=== PATIENT | male | born 1930 | race Caucasian/White ===

== ENCOUNTER → 2016-12-06 | Day surgery (SDC) | payer OTHER ==
[2016-11-29 10:29] VITALS: Ht 177.8 cm; Wt 91.8 kg
[~2016-12-06] VITALS: Ht 177.8 cm; Wt 91.8 kg
[~2016-12-06] MED LIST: ASCO500T3 PO; ASPCH81X PO; CITA40TA12 PO; CYAN100020 PO; ENDOSCOPIC MARKER 5 ML SYR ONE; FOLI1TAB7 PO; INSHNI SC; LIDOCAINE HCL 2% 2 ML VIAL (20MG/ML) ONE; LORA-741 PO; MULT-845 PO; NVLGI/PEN SC; ONDA4TAB65 PO; ONDANSETRON INJ 2 MG/ML 2 ML VIAL ONE; PROPOFOL IV EMULSION 10 MG/ML 20 ML VIAL IV ONE; QUET1TAB32 PO; SIMV20TA2 PO; SODIUM CHLORIDE 0.9% 500ML 500 ML IV ONE
--- NOTE | 2016-12-06 11:30 | Endo History and Physical ---
History & Physical Date of Service: Dec 06, 2016. Chief Complaint: abdominal discomfort and weight loss Referring Physician: History of Present Illness 86 year old male patient of Dr. Allen with a hx of DM-2, HTN, AAA, PVD, is here for abdominal discomfort and nausea of 6-7 weeks duration. This began abruptly, but was not associated any other symptoms of illness and no sick contact. Discomfort is diffuse, upper abdomen. He has persistent nausea but no vomiting. Unsure if there are any triggers; not worse any certain time of day. Eating improves his nausea. He has had a 10 lbs weight loss in the past 2 months. 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 He is sleeping more than usually. Appetite is good. CT and GES have been normal. He smokes several cigars a day for >50 yrs ago. Also has c/o diarrhea for 3 wks. Past Medical History Diabetes, High Cholesterol, Hypertension, Depression Past Surgical History Hx Cardiac Surgery: Yes (PACEMAKER, LEFT CAROTID ENDARTERECTOMY) Hx Internal Defibrillator: No Hx Pacemaker: No Hx Abdominal Surgery: Yes (JACQUI) Hx of Implantable Prosthesis: No Hx Post-Op Nausea and Vomiting: No Hx Cancer Surgery: No Hx Thoracic Surgery: No Hx Orthopedic: No Hx Urinary Tract Surgery: No Family History None Social History Smoking Status: Current Some Day Smoker Hx Substance Use: No Hx Alcohol Use: No Allergies Coded Allergies: No Known Allergies (Unverified , 12/06/16) Current Medications Reported Home Medications Medications Dose Route/Sig Max Daily Dose Days Date Category Dose Instructions Seroquel (Quetiapine Fumarate) 50 Mg Tab 50 Mg PO HS 11/29/16 Reported Celexa (Citalopram Hydrobromide) 40 Mg Tab 40 Mg PO QAM 11/29/16 Reported Folvite (Folic Acid) 1 Mg Tab 1 Mg PO QAM 11/29/16 Reported Centrum Silver Adult 50+ (Multiple Vitamins W/ Minerals) 1 Tab Tab 1 Tab PO QAM 11/29/16 Reported Vitamin C (Ascorbic Acid) 500 Mg Tab 1 Tab PO QAM 11/29/16 Reported Aspirin Chewable (Aspirin) 81 Mg Chew 81 Mg PO QAM 11/29/16 Reported Vitamin B12 (Cyanocobalamin) 1,000 Mcg Tab 1 Tab PO QAM 11/29/16 Reported Novolog Flexpen (Insulin Aspart) 100 Units/Ml Inj 1 Dose SC TID 11/29/16 Reported PER SLIDING SCALE BASED ON BSG Humulin N (Insulin Human NPH) 100 Units/Ml Susp 36 Units SC QPM 11/29/16 Reported Humulin N (Insulin Human NPH) 100 Units/Ml Susp 32 Units SC QAM 11/29/16 Reported Zocor (Simvastatin) 20 Mg Tab 20 Mg PO QPM 11/29/16 Reported Zofran (Ondansetron Hcl) 4 Mg Tab 4 Mg PO PRN PRN 11/29/16 Reported Ativan (Lorazepam) 0.5 Mg Tab 0.5 Mg PO BID PRN 11/29/16 Reported Vital Signs Weight (Kilograms): 91.82 Height (Feet): 5 Height (Inches): 10 Physical Exam General Appearance: WD/WN, no apparent distress Respiratory/Chest: Respiratory effort: no dyspnea Auscultation: breath sounds normal, CTA except as noted, no wheezing Cardiovascular: Apical Impulse: not displaced Heart Auscultation: RRR, normal S1, normal S2 Assessment and Plan 86 yo presenting with c/o of abdominal discomfort and weight loss plan for colonoscopy with random biopsies
--- NOTE | 2016-12-06 13:26 | GI REPORT ---
Procedure Date: 12/06/2016 12:30 PM Procedure: Colonoscopy Indications: Chronic diarrhea Medicines: General Anesthesia Complications: No immediate complications. Estimated blood loss: None. Estimated Blood Loss: Estimated blood loss: none. Procedure: Pre-Anesthesia Assessment: - Pre-Anesthesia Assessment: - Prior to the procedure, a History and Physical was performed, and patient medications, allergies and sensitivities were reviewed. The patient's tolerance of previous anesthesia was reviewed. Please see cafegive for complete details. - The risks and benefits of the procedure and the sedation options and risks were discussed with the patient. All questions were answered and informed consent was obtained. - Patient identification and proposed procedure were verified prior to the procedure by the physician and the nurse. The procedure was verified in the pre-procedure area in the procedure room. After obtaining informed consent, the endoscope was passed carefully and meticuously under direct vision and only advanced when the lumen was clearly identified, C02 insuflation was utilized throughout the entirity of the procedure. Throughout the procedure, the patient's blood pressure, pulse, and oxygen saturations were monitored continuously. After I obtained informed consent, the scope was passed under direct vision. Throughout the procedure, the patient's blood pressure, pulse, and oxygen saturations were monitored continuously. The scope was introduced through the anus and advanced to the terminal ileum, with identification of the appendiceal orifice and IC valve. The colonoscopy was performed without difficulty. The quality of the bowel preparation was good. The patient tolerated the procedure poorly due to frequent coughing and desaturation. Findings: A 20 mm polyp was found in the mid ascending colon. The polyp was sessile. Polypectomy was not attempted due to size and stability of patient. Biopsies were taken with a cold forceps for histology. Area was tattooed with an injection of Eva ink. A 20 mm polyp was found in the transverse colon. The polyp was sessile. Polypectomy was not attempted due to size and patient stability. A 5 mm polyp was found in the transverse colon. The polyp was sessile. The polyp was removed with a cold snare. Resection and retrieval were complete. Two sessile polyps were found in the sigmoid colon. The polyps were 3 to 5 mm in size. These polyps were removed with a cold snare. Resection and retrieval were complete. Multiple small-mouthed diverticula were found in the sigmoid colon. Biopsies for histology were taken with a cold forceps from the entire colon for evaluation of microscopic colitis. Impression: - One 20 mm polyp in the mid ascending colon. Resection not attempted. Biopsied. Tattooed. - One 20 mm polyp in the transverse colon. Resection not attempted. - One 5 mm polyp in the transverse colon, removed with a cold snare. Resected and retrieved. - Two 3 to 5 mm polyps in the sigmoid colon, removed with a cold snare. Resected and retrieved. - Diverticulosis in the sigmoid colon. - Biopsies were taken with a cold forceps from the entire colon for evaluation of microscopic colitis. Recommendation: - Discharge patient to home (with escort). - Await pathology results. - Discuss surgical resection for large polyps - Await stool studies Eben Sánchez MD 12/06/2016 1:26:06 PM This report has been signed electronically. Note Initiated On: 12/06/2016 12:30 PM I attest to the content of the Intraoperative Record and orders documented therein, exceptions below
--- NOTE | 2016-12-06 13:28 | Discharge Instructions ---
Endoscopy Patient Instructions Date / Procedure(s) Performed Dec 06, 2016. Colonoscopy Allergy Information Coded Allergies: No Known Allergies (Unverified , 12/06/16) Discharge Date / Findings Dec 06, 2016. Two large polyps that could not be removed due to size-these were biopsied several other small polyps Diverticuli biopsies were taken for evaluation of diarrhea We will discuss next step after pathology has been reviewed. Provider Instructions Activity Restrictions - No exercising or heavy lifting for 24 hours. - Do not drink alcohol the day of the procedure. - Do not drive a car or operate machinery until the day after the procedure. - Do not make any important decisions or sign important papers in 24 hours after the procedure. Following Day: - Return to full activity which may include returning to work/school. Diet Start your diet with liquids and light foods (jello, soup, juice, toast). Then eat your usual diet if not nauseated. Treatment For Common After Affects For mild abdominal pain, bloating, or excessive gas: - Rest - Eat lightly - Lie on right side Follow-Up Information Follow-up with Tiffany as scheduled Anesthesia Information What You Should Know You have had a procedure that required some medicine to reduce anxiety and discomfort. This treatment is called moderate sedation. After receiving the treatment, you may be sleepy, but you will be able to breathe on your own. The effects of the treatment may last for several hours. Follow these instructions along with Activity/Diet recommendations noted above: * Do NOT do anything where dizziness or clumsiness would be dangerous. * Rest quietly at home today, then you can be up and about tomorrow. * Have a responsible person stay with you the rest of today. * You may have had an I.V. today. If so, you may take the dressing off later today. Recommendations Call your doctor if: * Trouble breathing * Continuous vomiting for more than 24 hours * Temperature above 101 degrees * Severe abdominal pain or bloating * Pain not relieved by pain medicine ordered * There is increased drainage or redness from any incision * A large amount of rectal bleeding greater than 2-3 tablespoons. (If you had a polyp/s removed or have hemorrhoids, a small amount of blood - from the rectum is to be expected.) * You have any unanswered questions or concerns. IN THE EVENT OF A SERIOUS EMERGENCY, GO TO THE NEAREST EMERGENCY ROOM Your discharge instructions were prepared by provider Eben Sánchez. Patient Instructions Signature Page Avril Ferrell Patient (or Guardian) Signature/Date: I have read and understand the instructions given to me by my caregivers. Caregiver/RN/Doctor Signature/Date: The above-named patient and/or guardian has received patient instructions on this date. + Original Patient Signature Page (only) stays with chart. Please make copy for patient.
--- NOTE | 2016-12-06 13:42 | Anesthesiology Progress Note ---
Anesthesia Post Op Note Date & Time Dec 06, 2016 at 13:41 Vital Signs Pain Intensity: 0 Vital Signs Past 12 Hours Date Time Temp Pulse Resp B/P Pulse Ox O2 Delivery O2 Flow Rate FiO2 12/06/16 13:39 66 18 217/93 96 Room Air 12/06/16 11:38 36.4 66 18 167/81 95 Room Air Notes Mental Status: alert / awake / arousable, participated in evaluation Pt Amnestic to Procedure: Yes Nausea / Vomiting: adequately controlled Pain: adequately controlled Airway Patency, RR, SpO2: stable & adequate BP & HR: stable & adequate Hydration State: stable & adequate Anesthetic Complications: no major complications apparent
[2016-12-06 14:00] VITALS: BP 185/92; PULSE 68; O2SAT 96
== END | disposition home or self-care (01) ==
LOC: C.GI 11:13
PROVIDERS: ATTEND Internal Medicine
DX: K52.9 Noninfective gastroenteritis and colitis, unspecified (principal); R63.4 Abnormal weight loss; D12.2 Benign neoplasm of ascending colon; D12.3 Benign neoplasm of transverse colon; D12.4 Benign neoplasm of descending colon; D12.5 Benign neoplasm of sigmoid colon; K57.30 Diverticulosis of large intestine without perforation or abscess without bleeding; I10 Essential (primary) hypertension; I71.4 Abdominal aortic aneurysm, without rupture; I73.9 Peripheral vascular disease, unspecified; E78.00 Pure hypercholesterolemia, unspecified; E11.9 Type 2 diabetes mellitus without complications; F32.9 Major depressive disorder, single episode, unspecified; Z95.0 Presence of cardiac pacemaker; Z98.41 Cataract extraction status, right eye; Z98.42 Cataract extraction status, left eye; Z90.49 Acquired absence of other specified parts of digestive tract; F17.200 Nicotine dependence, unspecified, uncomplicated; Z79.4 Long term (current) use of insulin; Z68.29 Body mass index [BMI] 29.0-29.9, adult

== ENCOUNTER → 2016-12-09 | Day surgery (SDC) | payer OTHER ==
[2016-12-01 11:39] VITALS: BMI 29.0
[~2016-12-09] VITALS: Ht 177.8 cm; Wt 91.8 kg
[~2016-12-09] MED LIST changes: -ENDOSCOPIC MARKER 5 ML SYR ONE; +FENTANYL CITRATE INJ 50 MCG/1 ML 2 ML VIAL ONE; +LACTATED RINGER'S 1000ML 1,000 ML IV SCH; -LIDOCAINE HCL 2% 2 ML VIAL (20MG/ML) ONE; -ONDANSETRON INJ 2 MG/ML 2 ML VIAL ONE; -PROPOFOL IV EMULSION 10 MG/ML 20 ML VIAL IV ONE
[2016-12-09 05:40] VITALS: BP 154/91; PULSE 88; TEMP 36.7; O2SAT 92; Ht 177.8 cm; Wt 91.8 kg
--- NOTE | 2016-12-09 07:59 | DIAGNOSTIC IMAGING REPORT ---
CHEST ONE VIEW PORTABLE CLINICAL HISTORY: MD ORDER dyspnea COMPARISON STUDY: 03/04/2014 FINDINGS: Permanent bipolar cardiac pacemaker. Lungs are clear. Diaphragms smooth. IMPRESSION: No acute process. Electronically signed by: Gold Santiago M.D. 12/09/2016 7:57 AM Dictated Date/Time: 12/09/2016 7:56 AM
--- NOTE | 2016-12-09 08:14 | Anesthesiology Progress Note ---
Anesthesia Progress Note Date of Service Dec 09, 2016. Progress Notes The patient is an 86 y/o male scheduled for upper EUS with Dr. Sánchez. The patient has an upper respiratory infection that began several days ago. He has been coughing frequently and feels worse than normal. The patient has significant comorbidities including requiring emergency tracheostomy during induction for a lap cholecystectomy due to unknown difficult airway. A CXR today shows the lungs to be clear. However SpO2 on room air is 92 and on exam the patient has rhonchi bilaterally and a coarse cough. Dr. Betancur examined the patient with me and agrees that the patient is acutely at a high risk for reactive airway. Dr. Sánchez who performed an EGD several days ago on the patient agreed that the patient was coughing constantly during that procedure and noted the patient to be difficult. After discussion with Dr. Betancur, Dr. Sánchez, the patient, and the patient's we decided to cancel the procedure today and reschedule when the patient's URI has resolved.
== END | disposition home or self-care (01) ==
LOC: C.ACU 05:14
PROVIDERS: ATTEND Internal Medicine
DX: R10.10 Upper abdominal pain, unspecified (principal); J06.9 Acute upper respiratory infection, unspecified; Z53.09 Procedure and treatment not carried out because of other contraindication; Z98.890 Other specified postprocedural states; E11.9 Type 2 diabetes mellitus without complications

== ENCOUNTER 2016-12-23 06:04 | Day surgery (SDC) | payer OTHER ==
[2016-12-21 09:17] VITALS: BMI 29.0
[~2016-12-23] VITALS: Ht 177.8 cm; Wt 91.8 kg
[~2016-12-23 06:04] MED LIST changes: -FENTANYL CITRATE INJ 50 MCG/1 ML 2 ML VIAL ONE
[2016-12-23 06:50] VITALS: BP 141/73; PULSE 60; TEMP 36.7; O2SAT 92; Ht 177.8 cm; Wt 91.8 kg
[2016-12-23] MEDS ORDERED: KETAMINE HCL INJ 50 MG/ML 10 ML VIAL ONE (07:10)
[2016-12-23] MEDS ORDERED: FENTANYL CITRATE INJ 50 MCG/1 ML 2 ML VIAL ONE (07:10)
--- NOTE | 2016-12-23 07:56 | Endo History and Physical ---
History & Physical Date of Service: Dec 22, 2016. Chief Complaint: Referring Physician: History of Present Illness 86 year old male patient of Dr. Allen with a hx of DM-2, HTN, AAA, PVD, who presented for consultation for abdominal discomfort and nausea of 6-7 weeks duration. This began abruptly, but was not associated any other symptoms of illness and no sick contact. Discomfort is diffuse, upper abdomen. He has persistent nausea but no vomiting. Unsure if there are any triggers; not worse any certain time of day. Eating improves his nausea. He has had a 10 lbs weight loss in the past 2 months. 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 He is sleeping more than usually. Appetite is good. CT and GES have been normal. He smokes several cigars a day for >50 yrs ago. Prior work up to Date: [place] GES 11/15/16: T 1/2 = [address] 11/03/2016 at [facility] with IV not oral contrast: no bowel abnormalities. 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 Labs: chem panel on 11/04/16 BS 296, ALT 38. Past Medical History Diabetes, High Cholesterol, Hypertension, Depression Past Surgical History Hx Cardiac Surgery: Yes (PACEMAKER, LEFT CAROTID ENDARTERECTOMY) Hx Internal Defibrillator: No Hx Pacemaker: No Hx Abdominal Surgery: Yes (JACQUI) Hx Post-Op Nausea and Vomiting: No Hx Cancer Surgery: No Hx Thoracic Surgery: No Hx Orthopedic: No Hx Urinary Tract Surgery: No Social History Smoking Status: Light Tobacco Smoker Hx Substance Use: No Hx Alcohol Use: No Allergies Coded Allergies: No Known Allergies (Unverified , 12/23/16) Current Medications Reported Home Medications Medications Dose Route/Sig Max Daily Dose Days Date Category Dose Instructions Seroquel (Quetiapine Fumarate) 50 Mg Tab 50 Mg PO HS 11/29/16 Reported Celexa (Citalopram Hydrobromide) 40 Mg Tab 40 Mg PO QAM 11/29/16 Reported Folvite (Folic Acid) 1 Mg Tab 1 Mg PO QAM 11/29/16 Reported Centrum Silver Adult 50+ (Multiple Vitamins W/ Minerals) 1 Tab Tab 1 Tab PO QAM 11/29/16 Reported Vitamin C (Ascorbic Acid) 500 Mg Tab 1 Tab PO QAM 11/29/16 Reported Aspirin Chewable (Aspirin) 81 Mg Chew 81 Mg PO QAM 11/29/16 Reported Vitamin B12 (Cyanocobalamin) 1,000 Mcg Tab 1 Tab PO QAM 11/29/16 Reported Novolog Flexpen (Insulin Aspart) 100 Units/Ml Inj 1 Dose SC TID 11/29/16 Reported PER SLIDING SCALE BASED ON BSG Humulin N (Insulin Human NPH) 100 Units/Ml Susp 36 Units SC QPM 11/29/16 Reported Humulin N (Insulin Human NPH) 100 Units/Ml Susp 32 Units SC QAM 11/29/16 Reported Zocor (Simvastatin) 20 Mg Tab 20 Mg PO QPM 11/29/16 Reported Zofran (Ondansetron Hcl) 4 Mg Tab 4 Mg PO PRN PRN 11/29/16 Reported Ativan (Lorazepam) 0.5 Mg Tab 0.5 Mg PO BID PRN 11/29/16 Reported Vital Signs Weight (Kilograms): 91.82 Height (Feet): 5 Height (Inches): 10 Physical Exam General Appearance: WD/WN, no apparent distress Respiratory/Chest: Respiratory effort: no dyspnea Auscultation: breath sounds normal, CTA except as noted, no wheezing, no rales/crackles Cardiovascular: Apical Impulse: not displaced Heart Auscultation: RRR, normal S1, normal S2, no murmurs Abdomen: Bowel Sounds: normal Inspection & Palpation: soft, non-distended, no tenderness, guarding & rebound Assessment and Plan Plan for EGD/EUS for evaluation of nausea and occult weight loss
--- NOTE | 2016-12-23 07:57 | Endo History and Physical ---
History & Physical Date of Service: Dec 23, 2016. Chief Complaint: Referring Physician: History of Present Illness 86 year old male patient of Dr. Allen with a hx of DM-2, HTN, AAA, PVD, who presented for consultation for abdominal discomfort and nausea of 6-7 weeks duration. This began abruptly, but was not associated any other symptoms of illness and no sick contact. Discomfort is diffuse, upper abdomen. He has persistent nausea but no vomiting. Unsure if there are any triggers; not worse any certain time of day. Eating improves his nausea. He has had a 10 lbs weight loss in the past 2 months. 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 He is sleeping more than usually. Appetite is good. CT and GES have been normal. He smokes several cigars a day for >50 yrs ago. Prior work up to Date: [place] G[place] 11/15/16: T 1/2 = [address] 11/03/2016 at [facility] with IV not oral contrast: no bowel abnormalities. 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 Labs: chem panel on 11/04/16 BS 296, ALT 38. Past Medical History Diabetes, High Cholesterol, Hypertension, Depression Past Surgical History Hx Cardiac Surgery: Yes (PACEMAKER, LEFT CAROTID ENDARTERECTOMY) Hx Internal Defibrillator: No Hx Pacemaker: No Hx Abdominal Surgery: Yes (JACQUI) Hx Post-Op Nausea and Vomiting: No Hx Cancer Surgery: No Hx Thoracic Surgery: No Hx Orthopedic: No Hx Urinary Tract Surgery: No Social History Smoking Status: Light Tobacco Smoker Hx Substance Use: No Hx Alcohol Use: No Allergies Coded Allergies: No Known Allergies (Unverified , 12/23/16) Current Medications Reported Home Medications Medications Dose Route/Sig Max Daily Dose Days Date Category Dose Instructions Seroquel (Quetiapine Fumarate) 50 Mg Tab 50 Mg PO HS 11/29/16 Reported Celexa (Citalopram Hydrobromide) 40 Mg Tab 40 Mg PO QAM 11/29/16 Reported Folvite (Folic Acid) 1 Mg Tab 1 Mg PO QAM 11/29/16 Reported Centrum Silver Adult 50+ (Multiple Vitamins W/ Minerals) 1 Tab Tab 1 Tab PO QAM 11/29/16 Reported Vitamin C (Ascorbic Acid) 500 Mg Tab 1 Tab PO QAM 11/29/16 Reported Aspirin Chewable (Aspirin) 81 Mg Chew 81 Mg PO QAM 11/29/16 Reported Vitamin B12 (Cyanocobalamin) 1,000 Mcg Tab 1 Tab PO QAM 11/29/16 Reported Novolog Flexpen (Insulin Aspart) 100 Units/Ml Inj 1 Dose SC TID 11/29/16 Reported PER SLIDING SCALE BASED ON BSG Humulin N (Insulin Human NPH) 100 Units/Ml Susp 36 Units SC QPM 11/29/16 Reported Humulin N (Insulin Human NPH) 100 Units/Ml Susp 32 Units SC QAM 11/29/16 Reported Zocor (Simvastatin) 20 Mg Tab 20 Mg PO QPM 11/29/16 Reported Zofran (Ondansetron Hcl) 4 Mg Tab 4 Mg PO PRN PRN 11/29/16 Reported Ativan (Lorazepam) 0.5 Mg Tab 0.5 Mg PO BID PRN 11/29/16 Reported Vital Signs Weight (Kilograms): 91.82 Height (Feet): 5 Height (Inches): 10 Date Time Temp Pulse Resp B/P Pulse Ox O2 Delivery O2 Flow Rate FiO2 12/23/16 06:50 36.7 60 20 141/73 92 Room Air Physical Exam Respiratory/Chest: Respiratory effort: no dyspnea Auscultation: breath sounds normal, CTA except as noted, no wheezing, no rales/crackles
--- NOTE | 2016-12-23 08:35 | Discharge Instructions ---
Endoscopy Patient Instructions Date / Procedure(s) Performed Dec 23, 2016. Allergy Information Coded Allergies: No Known Allergies (Unverified , 12/23/16) Discharge Date / Findings Dec 23, 2016. Esophageal stricture Biopsies taken from small intestine, stomach, and esophagus You will be contacted with the results and plan. Provider Instructions Activity Restrictions - No exercising or heavy lifting for 24 hours. - Do not drink alcohol the day of the procedure. - Do not drive a car or operate machinery until the day after the procedure. - Do not make any important decisions or sign important papers in 24 hours after the procedure. Following Day: - Return to full activity which may include returning to work/school. Diet Start your diet with liquids and light foods (jello, soup, juice, toast). Then eat your usual diet if not nauseated. Treatment For Common After Affects For mild abdominal pain, bloating, or excessive gas: - Rest - Eat lightly - Lie on right side Follow-Up Information Follow-up with as scheduled Anesthesia Information What You Should Know You have had a procedure that required some medicine to reduce anxiety and discomfort. This treatment is called moderate sedation. After receiving the treatment, you may be sleepy, but you will be able to breathe on your own. The effects of the treatment may last for several hours. Follow these instructions along with Activity/Diet recommendations noted above: * Do NOT do anything where dizziness or clumsiness would be dangerous. * Rest quietly at home today, then you can be up and about tomorrow. * Have a responsible person stay with you the rest of today. * You may have had an I.V. today. If so, you may take the dressing off later today. Recommendations Call your doctor if: * Trouble breathing * Continuous vomiting for more than 24 hours * Temperature above 101 degrees * Severe abdominal pain or bloating * Pain not relieved by pain medicine ordered * There is increased drainage or redness from any incision * A large amount of rectal bleeding greater than 2-3 tablespoons. (If you had a polyp/s removed or have hemorrhoids, a small amount of blood - from the rectum is to be expected.) * You have any unanswered questions or concerns. IN THE EVENT OF A SERIOUS EMERGENCY, GO TO THE NEAREST EMERGENCY ROOM Your discharge instructions were prepared by provider Eben Sánchez. Patient Instructions Signature Page C Ghassan Patient (or Guardian) Signature/Date: I have read and understand the instructions given to me by my caregivers. Caregiver/RN/Doctor Signature/Date: The above-named patient and/or guardian has received patient instructions on this date. + Original Patient Signature Page (only) stays with chart. Please make copy for patient.
[2016-12-23] MEDS ORDERED: EpHEDrine SULFATE INJ 50 MG/ML AMP IV PRN (08:45)
[2016-12-23] MEDS ORDERED: SUCCINYLCHOLINE CHLORIDE 20 MG/ML 10 ML VIAL IV ONE (08:45)
[2016-12-23] MEDS ORDERED: ATROPINE SULFATE 0.1 MG/ML 5ML SYR IV PRN (08:45)
[2016-12-23] MEDS ORDERED: PROPOFOL IV EMULSION 10 MG/ML 20 ML VIAL IV ONE (08:45)
[2016-12-23] MEDS ORDERED: LIDOCAINE 2% 20 MG/ML 5ML SYR ONE (08:45)
--- NOTE | 2016-12-23 09:13 | GI REPORT ---
Procedure Date: 12/23/2016 8:05 AM Procedure: Upper GI endoscopy Indications: Diarrhea Medicines: General Anesthesia Complications: No immediate complications. Estimated blood loss: None. Estimated Blood Loss: Estimated blood loss: none. Procedure: Pre-Anesthesia Assessment: - Pre-Anesthesia Assessment: - Prior to the procedure, a History and Physical was performed, and patient medications, allergies and sensitivities were reviewed. The patient's tolerance of previous anesthesia was reviewed. Please see [facility] for complete details. - The risks and benefits of the procedure and the sedation options and risks were discussed with the patient. All questions were answered and informed consent was obtained. - Patient identification and proposed procedure were verified prior to the procedure by the physician and the nurse. The procedure was verified in the pre-procedure area in the procedure room. After obtaining informed consent, the endoscope was passed carefully and meticuously under direct vision and only advanced when the lumen was clearly identified, C02 insuflation was utilized throughout the entirity of the procedure. Throughout the procedure, the patient's blood pressure, pulse, and oxygen saturations were monitored continuously. After obtaining informed consent, the endoscope was passed under direct vision. Throughout the procedure, the patient's blood pressure, pulse, and oxygen saturations were monitored continuously. The Scope was introduced through the mouth, and advanced to the third part of duodenum. The upper GI endoscopy was accomplished without difficulty. The patient tolerated the procedure well. Findings: One severe benign-appearing, intrinsic stenosis was found. This measured 9 mm (inner diameter) x 1 cm (in length) and was traversed. Dilation with non complicated mucosal tear only with the H190 GIF scope. Therefore further dilation was not attempted. Biopsies were taken with a cold forceps for histology. Cells for cytology were obtained by brushing. The entire examined stomach was normal. Biopsies were taken with a cold forceps for histology. Diffuse mucosal flattening was found in the entire examined duodenum. Biopsies were taken with a cold forceps for histology. Impression: - Benign-appearing esophageal stenosis. Biopsied. Cells for cytology obtained. - Normal stomach. Biopsied. - Flattened mucosa was found in the duodenum, suspicious for celiac disease. Biopsied. Recommendation: - Await pathology results. - Discharge patient to home (with escort). - Use Prilosec (omeprazole) 20 mg PO BID. - Daily Fiber - EUS not attempted today, discuss with patient for furhter dilation and repeat attempt at EUS. Eben Sánchez MD 12/23/2016 9:11:57 AM This report has been signed electronically. Note Initiated On: 12/23/2016 8:05 AM I attest to the content of the Intraoperative Record and orders documented therein, exceptions below
--- NOTE | 2016-12-23 09:16 | Anesthesiology Progress Note ---
Anesthesia Post Op Note Date & Time Dec 23, 2016 at 09:16 Vital Signs Pain Intensity: 0 Vital Signs Past 12 Hours Date Time Temp Pulse Resp B/P Pulse Ox O2 Delivery O2 Flow Rate FiO2 12/23/16 09:05 60 16 178/85 93 Room Air 12/23/16 08:55 60 16 182/94 99 Mask 10 12/23/16 08:45 60 16 191/97 99 Mask 10 12/23/16 08:37 36.3 68 16 211/102 99 Mask 10 12/23/16 06:50 36.7 60 20 141/73 92 Room Air Notes Mental Status: alert / awake / arousable, participated in evaluation Pt Amnestic to Procedure: Yes Nausea / Vomiting: adequately controlled Pain: adequately controlled Airway Patency, RR, SpO2: stable & adequate BP & HR: stable & adequate Hydration State: stable & adequate Anesthetic Complications: no major complications apparent
[2016-12-23 09:20] VITALS: BP 163/77; PULSE 60; TEMP 36.6; O2SAT 92
[2016-12-23 09:50] VITALS: BP 110/76; PULSE 61; TEMP 36.7; O2SAT 93
[2016-12-23] MEDS ORDERED: LARYING-O-JET KIT (LTA) EXT ONE ×2 (09:55)
[2016-12-23 10:10] VITALS: BP 121/72; PULSE 64; TEMP 36.4; O2SAT 92
== END 2016-12-23 10:29 | disposition home or self-care (01) ==
LOC: C.ACU 06:04
PROVIDERS: ATTEND Internal Medicine
DX: K22.2 Esophageal obstruction (principal); R19.7 Diarrhea, unspecified; E11.9 Type 2 diabetes mellitus without complications; I10 Essential (primary) hypertension; F17.290 Nicotine dependence, other tobacco product, uncomplicated; I71.4 Abdominal aortic aneurysm, without rupture; E78.00 Pure hypercholesterolemia, unspecified; F32.9 Major depressive disorder, single episode, unspecified; Z95.0 Presence of cardiac pacemaker; Z79.82 Long term (current) use of aspirin; Z79.899 Other long term (current) drug therapy; Z79.4 Long term (current) use of insulin

== ENCOUNTER 2017-08-14 19:51 | Inpatient (IN) | payer OTHER ==
[~2017-08-14] VITALS: Ht 180.3 cm; Wt 100.0 kg
[~2017-08-14 19:51] MED LIST changes: -FOLI1TAB7 PO; +FOLI1TAB8 PO; -LACTATED RINGER'S 1000ML 1,000 ML IV SCH; -SODIUM CHLORIDE 0.9% 500ML 500 ML IV ONE
[2017-08-14 22:15] VITALS: BP 160/81; PULSE 99; TEMP 36.6; O2SAT 94; BMI 30.4
--- NOTE | 2017-08-14 22:58 | History and Physical ---
History & Physical Date & Time of Service: Aug 14, 2017 at 22:47 Chief Complaint: Pneumonia, Sepsis Primary Care Physician: Latoya Allen M.D. History of Present Illness Source: patient, spouse This is an 86 y/o M who presents as a direct admit from [facility] for Pneumonia. Patient is slightly confused. 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 Also went to a concert last night. This morning he awoke around 7 am with an episode of emesis. He woke up again around 10 am with another episode of emesis. He later had a bowel movement and was unable to get off the toilet. His was afraid to help as she worried that they would both fall. She called 911. When they arrived, his bsg was in the 400's. He was taken to [place]. While in the ER at [place], he was found to have a right middle lobe pneumonia and small pneumonitis. He did have CT Abd/pelvis that showed a small infrarenal aneurysm as well confirmed the pneumonia He had a lactic acid of 4.3, wbc of 15, with neutrophilic predominance He was given a dose of Levaquin and 3 L of NSS. He was then transferred here for further eval. Unable to obtain information of PMH etc. Patient supposedly has oxygen at home but uses infrequently. Past Medical/Surgical History HTN CAD Diabetes Social History Smoking Status: Current Every Day Smoker Alcohol Use: occasionally Drug Use: none Marital Status: Housing status: lives with family Occupational Status: retired Allergies Coded Allergies: No Known Allergies (Unverified , 12/23/16) Home Medications Scheduled Amlodipine (Norvasc), 10 MG PO DAILY Ascorbic Acid (Vitamin C), 1 TAB PO QAM Aspirin (Aspirin Chewable), 81 MG PO QAM Citalopram Hydrobromide (Celexa), 40 MG PO QAM Clopidogrel (Plavix), 75 MG PO DAILY Cyanocobalamin (Vitamin B12), 1 TAB PO QAM Folic Acid (Folvite), 400 MCG PO DAILY Insulin Isophan/Regular (Humulin 70/30), 36 UNITS SC AT BREAKFAST Insulin Isophan/Regular (Humulin 70/30), 42 UNITS SC WIH DINNER Losartan Potassium (Cozaar), 50 MG PO DAILY Multiple Vitamins W/ Minerals (Centrum Silver Adult 50+), 1 TAB PO QAM Pantoprazole (Protonix), 40 MG PO DAILY Quetiapine Fumarate (Seroquel), 50 MG PO HS Simvastatin (Zocor), 20 MG PO QPM Scheduled PRN Ondansetron Hcl (Zofran), 4 MG PO Q8 PRN for Nausea Miscellaneous Medications Insulin Aspart (Novolog Flexpen) Review of Systems patient is pleasantly confused, unable to obtain complete ROS Constitutional: No fever, No chills Respiratory: No cough, No shortness of breath, No dyspnea on exertion, No dyspnea at rest Cardiovascular: No chest pain Abdomen: No pain, No nausea, No vomiting Genitourinary - Male: No hematuria, No dysuria Physical Exam Vital Signs Date Time Temp Pulse Resp B/P (MAP) Pulse Ox O2 Delivery O2 Flow Rate FiO2 08/14/ 22:15 36.6 99 18 160/81 94 Nasal Cannula 5.0 General Appearance: no apparent distress Eyes: PERRL, EOMI ENT: hearing grossly normal Neck: no adenopathy Respiratory/Chest: no respiratory distress, no accessory muscle use, + decreased breath sounds Cardiovascular: regular rate, rhythm, no edema, normal peripheral pulses Abdomen/GI: normal bowel sounds, non tender, soft Back: no CVA tenderness Neurologic/Psych: surgical nurse II-XII nml as tested, alert, oriented x 3 Impression Assessment and Plan This is an 86 y/o M who presents as a transfer from [place] for sepsis 2/2 pneumonia as well as hyperglycemia Sepsis 2/2 Community acq. Pneumonia Confirmed via Xray and CT done at OSH repeat lactate 4.3 IV levaquin IV NSS Xray AM Nebulizer/O2 as needed ZOE on ?CKD No recent cr to compare Hydration Recheck BMP AM Hyperglycemia/DMII Insulin NPH Insulin Aspart Glycemic consult for potential insulin drip. Sick sinus s/p dual chamber pacemaker- noted CAD aspirin, Simvastatin Dvt proph Lovenox Code: DNR (per ) will bring in living will/advance directive. Please confirm. Resident Physician Supervision Note: I was present with Dr. Buck during the history and exam. I discussed the case with the resident and agree with the findings and plan as documented in the note. Any exceptions or clarifications are listed here: 86 y/o M DM, SSS, CAD, HPL - presents from [place] where he had been diagnosed with PNM and sepsis. Had presented to [place] with confusion and emesis. Lactic acid and creatinine elevated on initial labs OE AAO x 2 - largely oriented at time of evaluation S1,2 R decreased air at R base NT, ND No CCE P: Placed on Levaquin - no 02 demands presently - inhalers provided as needed Emesis has presently resolved Placed on a sliding scale for DM IVF for presumed ZOE - we do not know baseline creat - repeat BMP AM Cont ASA and Statin Tx Documented By: Vish Gary Advanced Directives Existing Living Will: Yes Existing Power of Patient Transportation Driver: Yes
[2017-08-14] MEDS ORDERED: MAGNESIUM HYDROXIDE SUSP 30 ML UDC PO PRN (23:15)
[2017-08-14] MEDS ORDERED: ALUMINUM/MAGNESIUM/SIMETH (MAALOX MAX) 30 ML UDC PO PRN (23:15)
[2017-08-14] MEDS ORDERED: ONDANSETRON INJ 2 MG/ML 2 ML VIAL IV PRN (23:15)
[2017-08-14] MEDS ORDERED: POLYETHYLENE (MIRALAX) 17 GM PACK PO PRN (23:15)
[2017-08-14] MEDS ORDERED: NITROGLYCERIN 0.4 MG SL PER TAB CHARGE SL PRN (23:15)
[2017-08-14] MEDS ORDERED: PHARMACY GLYCEMIC MGMT CONSULT PRN (23:30)
[2017-08-14 23:38] LABS: COMPLETE YES; IG% 0.3 %; LYMPH % 3.9 %; LYMPH ABS # 0.71 K/uL (1.2-3.4); MEAN CELL VOLUME 99.2 fL (80-100); MEAN CORPUSCULAR HEMOGLOBIN 33.7 pg (25-34); MEAN CORPUSCULAR HGB CONC 33.9 g/dl (32-36); MEAN PLATELET VOLUME 11.2 fL (7.4-10.4); MONO % 2.3 %; NEUT % 93.5 %; PLATELET COUNT 124 K/uL (130-400); RED BLOOD COUNT 3.83 M/uL (4.7-6.1); WHITE BLOOD COUNT 18.31 K/uL (4.8-10.8)
[2017-08-14] MEDS ORDERED: GLUCAGON FOR INJ 1 MG VIAL SQ PRN (23:45)
[2017-08-14] MEDS ORDERED: GLUCOSE 40% GEL 15 GM TUBE PO PRN (23:45)
[2017-08-14] MEDS ORDERED: DEXTROSE 50% 50 ML SYR IV PRN (23:45)
[2017-08-14] MEDS ORDERED: GLUCOSE 10 TABS/TUBE PO PRN (23:45)
[2017-08-14 23:49] LABS: PROTHROMBIN TIME (PATIENT) 10.9 SECONDS (9.0-12.0)
[2017-08-15] VITALS (8 sets, daily range): BP systolic 109–167; BP diastolic 58–77; PULSE 55–80; TEMP 36.3–36.9; O2SAT 91–97; Ht 180.3 cm; Wt 100.0 kg
[2017-08-15] MEDS ORDERED: INSULIN HUMAN REGULAR PER UNIT 10 UNITS in SYRINGE 9.9 ML IV SCH
[2017-08-15] MEDS ORDERED: INSULIN HUMAN NPH SC ONE
[2017-08-15] MEDS ORDERED: INSULIN ASPART 100 UNITS/ML 3 ML PEN SC ONE
[2017-08-15 00:08] LABS: ALB/GLOB RATIO 0.9 (0.9-2); ALKALINE PHOSPHATASE 62 U/L (45-117); ALT/SGPT 27 U/L (12-78); AST/SGOT 12 U/L (15-37); BLOOD UREA NITROGEN 23 mg/dl (7-18); BUN/CREATININE RATIO 13.4 (10-20); CALCIUM 8.1 mg/dl (8.5-10.1); CARBON DIOXIDE 23 mmol/L (21-32); CHLORIDE 102 mmol/L (98-107); CREATININE 1.75 mg/dl (0.60-1.40); GLUCOSE 479 mg/dl (70-99); SODIUM 133 mmol/L (136-145)
[2017-08-15] MEDS: SODIUM CHLORIDE 0.9% 1000ML 1,000 ML IV SCH ×2 (00:13→11:50)
[2017-08-15] MEDS ORDERED: SODIUM CHLORIDE 0.9% 1000ML 1,000 ML IV SCH (00:15)
[2017-08-15 00:21] LABS: BETA-HYDROXYBUTYRATE 2.65 mg/dL (0.2-2.81)
[2017-08-15] MEDS ORDERED: LEVOFLOXACIN CONSULT ACTIVE PRN (00:45)
[2017-08-15] MEDS ORDERED: CLOP1TAB15 PO (02:03)
[2017-08-15] MEDS ORDERED: LOSA50TA6 PO (02:03)
[2017-08-15] MEDS ORDERED: ONDA4TAB46 PO (02:03)
[2017-08-15] MEDS ORDERED: AMLO-114 PO (02:03)
[2017-08-15] MEDS ORDERED: PANT1TAB3 PO (02:03)
[2017-08-15] MEDS ORDERED: FOLI1TAB8 PO (02:03)
[2017-08-15] MEDS ORDERED: NVLGIPEN (02:06)
[2017-08-15] MEDS ORDERED: INSU1INJ SC ×2 (02:08)
[2017-08-15] MEDS ORDERED: ONDANSETRON 4 MG TAB PO PRN (02:15)
[2017-08-15] MEDS: INSULIN ASPART 100 UNITS/ML 3 ML PEN SC SCH ×5 (04:39→20:36)
[2017-08-15] MEDS ORDERED: ALBUT/IPRATROP 3MG/0.5MG NEB 3 ML VIAL INH PRN (06:15)
[2017-08-15 06:40] LABS: ESTIMATED AVERAGE GLUCOSE 223 mg/dl; HA1C FLAG Normal (Normal)
[2017-08-15] MEDS: PANTOprazole SOD 40 MG TAB PO SCH (07:43)
[2017-08-15] MEDS: ASCORBIC ACID 500 MG TAB PO SCH (07:43)
[2017-08-15] MEDS: FoLIC ACID TAB 400 MCG TAB PO SCH (07:44)
[2017-08-15] MEDS: AMLODIPINE BESYLATE 5 MG TAB PO SCH (07:44)
[2017-08-15] MEDS: CITALOPRAM 40 MG TAB PO SCH (07:44)
[2017-08-15] MEDS: ENOXAPARIN 40 MG/0.4 ML SYR SC SCH (07:44)
[2017-08-15] MEDS: CLOPIDOGREL BISULFATE 75 MG TAB PO SCH (07:45)
[2017-08-15] MEDS: CEROVITE ADV FORMULA TAB PO SCH (07:45)
[2017-08-15] MEDS: LOSARTAN POTASSIUM 50 MG TAB PO SCH (07:45)
[2017-08-15] MEDS: ASPIRIN 81 MG ECTAB PO SCH (07:46)
[2017-08-15] MEDS ORDERED: PNEUMOCOCCAL POLYSACCHARIDES 25 MCG/0.5 ML VIAL/SYR IM. ONE (08:00)
[2017-08-15] MEDS ORDERED: PNEUMOCOCCAL ADMINISTRATION CHARGE ONE (08:00)
--- NOTE | 2017-08-15 08:16 | DIAGNOSTIC IMAGING REPORT ---
CHEST 2 VIEWS ROUTINE CLINICAL HISTORY: 86 years-old Male presenting with dyspnea. TECHNIQUE: PA and lateral views of the chest were obtained. COMPARISON: 12/09/2016. FINDINGS: Left subclavian pacer with leads to the right atrium and right ventricular apex. Atherosclerosis of aortic arch. Chronic silhouette normal in size. Unchanged mild prominence of pulmonary vasculature interval development of hazy and reticular opacity in the right lung base. Interval development of small right pleural effusion. A trace left pleural effusion and minimal bandlike opacities at the left lung base may also be present. No pneumothorax. Degenerative changes of the thoracic spine. Cholecystectomy clips. IMPRESSION: 1. Right basilar opacity. An infectious etiology is not excluded although this may represent atelectasis or developing edema. 2. Small right pleural effusion. 3. Trace left effusion likely with left atelectasis. Electronically signed by: Dylon Prakash M.D. 08/15/2017 8:15 AM Dictated Date/Time: 08/15/2017 8:11 AM
[2017-08-15] MEDS: ACETAMINOPHEN 325 MG TAB PO PRN ×2 (08:56→15:45)
[2017-08-15] MEDS: INSULIN GLARGINE SOLOSTAR 100 UNITS/ML 3 ML PEN SC SCH ×2 (09:37→20:38)
--- NOTE | 2017-08-15 09:50 | Family Medicine Progress Note ---
Progress Note Date of Service Aug 15, 2017. Subjective Pt evaluation today including: conversation w/ patient, physical exam, chart review, lab review, conversation w/ supervisor home energy consultant, review of inpatient medication list Pain: none PO Intake: good Voiding: no voiding problems Patient feeling better today Denied any fevers or chills overnight Still has a productive cough but denies any chest pain or shortness of breath Occasionally uses oxygen at home Smokes cigars daily Constitutional: No fever, No chills, No sweats Respiratory: + cough, + sputum, No shortness of breath, No dyspnea at rest, No hemoptysis Cardiovascular: No chest pain, No edema, No claudication, No palpitations Abdomen: No pain, No nausea, No vomiting Male : No dysuria, No urinary frequency Psychiatric: + anxiety Medications Current Inpatient Medications Medications (Trade) Dose Ordered Sig/Jorge Route Start Time Stop Time Status Last Admin Dose Admin Enoxaparin Sodium (Lovenox Inj) 40 mg Q24H SC 08/15/17 09:00 09/14/17 08:59 08/15/17 07:44 40 MG Sodium Chloride 1,000 ml @ 75 mls/hr [id number] IV 08/14/17 23:30 09/13/17 23:29 08/15/17 00:13 75 MLS/HR Acetaminophen (Tylenol Tab) 650 mg Q4H PRN PO 08/14/17 23:15 09/13/17 23:14 08/15/17 08:56 650 MG Al Hydrox/Mg Hydrox/Simethicone (Maalox Max Susp) 15 ml Q4H PRN PO 08/14/17 23:15 09/13/17 23:14 Magnesium Hydroxide (Milk Of Magnesia Susp) 30 ml Q12H PRN PO 08/14/17 23:15 09/13/17 23:14 Ondansetron HCl (Zofran Inj) 4 mg Q6H PRN IV 08/14/17 23:15 09/13/17 23:14 Nitroglycerin (Nitrostat Tab) 0.4 mg UD PRN SL 08/14/17 23:15 09/13/17 23:14 Polyethylene (Miralax Powder Packet) 17 gm DAILY PRN PO 08/14/17 23:15 09/13/17 23:14 Miscellaneous Information (Consult Glycemic Management Pharmacy) 1 ea UD PRN N/A 08/14/17 23:30 09/13/17 23:29 Levofloxacin 750 mg/Prmx 150 ml @ 100 mls/hr Q48H IV 08/16/17 18:00 08/23/17 17:59 Glucose (Glucose 40% Gel) 15-30 GRAMS 15 GRAMS... UD PRN PO 08/14/17 23:45 09/13/17 23:44 Glucose (Glucose Chew Tab) 4-8 Tablets 4 Tabl... UD PRN PO 08/14/17 23:45 09/13/17 23:44 Dextrose (Dextrose 50% 50ML Syringe) 25-50ML OF 50% DW IV FOR... UD PRN IV 08/14/17 23:45 09/13/17 23:44 Glucagon (Glucagon Inj) 1 mg UD PRN SQ 08/14/17 23:45 09/13/17 23:44 Insulin Aspart (novoLOG ASPART) SLIDING SCALE ACHS SC 08/15/17 04:00 09/14/17 03:59 08/15/17 07:42 10 UNITS Levofloxacin (Consult) 1 ea UD PRN N/A 08/15/17 00:45 09/14/17 00:44 Amlodipine Besylate (Norvasc Tab) 10 mg DAILY PO 08/15/17 09:00 09/14/17 08:59 08/15/17 07:44 10 MG Ascorbic Acid (Vitamin C Tab) 500 mg QAM PO 08/15/17 09:00 09/14/17 08:59 08/15/17 07:43 500 MG Aspirin (Ecotrin Tab) 81 mg QAM PO 08/15/17 09:00 09/14/17 08:59 08/15/17 07:46 81 MG Citalopram Hydrobromide (celeXA TAB) 40 mg QAM PO 08/15/17 09:00 09/14/17 08:59 08/15/17 07:44 40 MG Clopidogrel Bisulfate (plAVix TAB) 75 mg DAILY PO 08/15/17 09:00 09/14/17 08:59 08/15/17 07:45 75 MG Folic Acid (Folvite Tab) 400 mcg DAILY PO 08/15/17 09:00 09/14/17 08:59 12/19/17 07:44 400 MCG Losartan Potassium (coZAAR TAB) 50 mg DAILY PO 08/15/17 09:00 09/14/17 08:59 08/15/17 07:45 50 MG Multivitamins/ Minerals (Multivitamin W/ Minerals Tab) 1 tab QAM PO 08/15/17 09:00 09/14/17 08:59 08/15/17 07:45 1 TAB Ondansetron HCl (Zofran Tab) 4 mg Q8 PRN PO 08/15/17 02:15 09/14/17 02:14 Pantoprazole Sodium (Protonix Tab) 40 mg DAILY PO 08/15/17 09:00 09/14/17 08:59 08/15/17 07:43 40 MG Quetiapine Fumarate (seroQUEL TAB) 50 mg HS PO 08/15/17 21:00 09/14/17 20:59 Simvastatin (Zocor Tab) 20 mg QPM PO 08/15/17 21:00 09/14/17 20:59 Albuterol/ Ipratropium (Duoneb) 3 ml Q4R PRN INH 08/15/17 06:15 09/14/17 06:14 Insulin Glargine (Lantus Solostar Pen) 25 units BID SC 08/15/17 09:15 09/14/17 09:14 Objective Vital Signs Date Time Temp Pulse Resp B/P (MAP) Pulse Ox O2 Delivery O2 Flow Rate FiO2 08/15/17 08:06 36.8 80 18 127/58 (81) 96 08/15/17 04:00 Nasal Cannula 5.0 08/15/17 03:01 36.7 77 19 109/63 (78) 94 Nasal Cannula 5.0 08/15/17 00:02 Nasal Cannula 5.0 08/14/17 22:15 36.6 99 18 160/81 94 Nasal Cannula 5.0 Physical Exam General Appearance: WD/WN, no apparent distress ENT: pharynx normal, + pertinent finding (poor dentition) Respiratory/Chest: lungs clear, no respiratory distress, no accessory muscle use, + decreased breath sounds (on the right side) Cardiovascular: regular rate, rhythm, no edema, no murmur Abdomen: normal bowel sounds, non tender, soft Extremities: non-tender, no pedal edema, no calf tenderness, normal capillary refill Neurologic/Psychiatric: normal mood/affect, oriented x 3 Laboratory Results Results Past 24 Hours Test 08/14/17 23:31 08/14/17 23:48 08/15/17 04:10 08/15/17 05:52 Range/Units White Blood Count 18.31 4.8-10.8 K/uL Red Blood Count 3.83 4.7-6.1 M/uL Hemoglobin 12.9 14.0-18.0 g/dL Hematocrit 38.0 42-52 % Mean Corpuscular Volume 99.2 80-100 fL Mean Corpuscular Hemoglobin 33.7 25-34 pg Mean Corpuscular Hemoglobin Concent 33.9 32-36 g/dl Platelet Count 124 130-400 K/uL Mean Platelet Volume 11.2 7.4-10.4 fL Neutrophils (%) (Auto) 93.5 % Lymphocytes (%) (Auto) 3.9 % Monocytes (%) (Auto) 2.3 % Eosinophils (%) (Auto) 0.0 % Basophils (%) (Auto) 0.0 % Neutrophils # (Auto) 17.12 1.4-6.5 K/uL Lymphocytes # (Auto) 0.71 1.2-3.4 K/uL Monocytes # (Auto) 0.42 0.11-0.59 K/uL Eosinophils # (Auto) 0.00 0-0.5 K/uL Basophils # (Auto) 0.00 0-0.2 K/uL RDW Standard Deviation 47.2 36.4-46.3 fL RDW Coefficient of Variation 13.1 11.5-14.5 % Immature Granulocyte % (Auto) 0.3 % Immature Granulocyte # (Auto) 0.06 0.00-0.02 K/uL Prothrombin Time 10.9 9.0-12.0 SECONDS Prothromb Time International Ratio 1.0 0.9-1.1 Sodium Level 133 136-145 mmol/L Potassium Level 5.0 3.5-5.1 mmol/L Chloride Level 102 98-107 mmol/L Carbon Dioxide Level 23 21-32 mmol/L Anion Gap 8.0 3-11 mmol/L Blood Urea Nitrogen 23 7-18 mg/dl Creatinine 1.75 0.60-1.40 mg/dl Est Creatinine Clear Calc Drug Dose 36.3 ml/min Estimated GFR () 40.0 Estimated GFR (Non- 34.5 BUN/Creatinine Ratio 13.4 10-20 Random Glucose 479 70-99 mg/dl Lactic Acid Level 4.3 2.2 0.4-2.0 mmol/L Calcium Level 8.1 8.5-10.1 mg/dl Total Bilirubin 1.0 0.2-1 mg/dl Aspartate Amino Transf (AST/SGOT) 12 15-37 U/L Alanine Aminotransferase (ALT/SGPT) 27 12-78 U/L Alkaline Phosphatase 62 45-117 U/L Troponin I < 0.015 0-0.045 ng/ml Total Protein 6.2 6.4-8.2 gm/dl Albumin 2.9 3.4-5.0 gm/dl Globulin 3.3 2.5-4.0 gm/dl Albumin/Globulin Ratio 0.9 0.9-2 Beta-Hydroxybutyric Acid 2.65 0.2-2.81 mg/dL Bedside Glucose 437 257 70-99 mg/dl Estimated Average Glucose 223 mg/dl Hemoglobin A1c 9.4 4.5-5.6 % Test 08/15/17 06:18 Range/Units Bedside Glucose 208 70-99 mg/dl Microbiology Results 08/15/17 Blood Culture, Received Pending 08/15/17 Blood Culture, Received Pending 08/15/17 Gram Stain, Ordered Pending 08/15/17 Sputum Culture, Ordered Pending Assessment and Plan This is an 86 y/o M who presents as a transfer from [place] for sepsis 2/2 pneumonia as well as hyperglycemia Sepsis 2/2 Community acq. Pneumonia - CXR showed R basilar opacity and R pleural effusion - lactate decreased from 4.3 to 2.2 - continue with IV levaquin - Continue with 80mls/hr NS - Ordered incentive spirometer - Nebulizer/O2 as needed - Ordered sputum cultures - Blood cultures pending ZOE on CKD - GFR 34.5 - creatine 1.75 - IVF with 75mls/hr NS - follow BMP HTN - continue losartan, norvasc and HCTZ - continue to monitor Depression - continue seroquel and celexa HLD - continue statin Hyperglycemia/DMII - insulin lantus 25 units bid with ISS - HbA1c 9.4 - glycemic consult for possible insulin drip Sick sinus s/p dual chamber pacemaker- noted CAD - aspirin, plavix and Simvastatin Dvt proph - Lovenox Code: - DNR (per ) Resident Physician Supervision Note: I interviewed and examined the patient. Discussed with Dr. Amish Reeves and agree with findings and plan as documented in the note. Any exceptions or clarifications are listed here: None Pt transfered her for sepsis from pneumonia source, he is much improved and has resolved his metabolic encephalopahty vital show no further fever, lungs are coarse at right base, car is regular Pt here with pneumonia, given some cough and poor dentition will be on alert for aspiration, right not treat for CAP. Sepsis has improved, control DM and follow renal function Documented By: Mahamed Vasquez Continued [facility] stay due to: multiple IV medications needed Discharge planning: home
--- NOTE | 2017-08-15 11:39 | Pharmacy Progress Note ---
Glycemic Control Intl Consult Date of Service Aug 15, 2017. Scope Glycemic Pharmacist consulted by Dr Salgado on 08/14/17 for glycemic control and to write orders per [facility] inpatient glycemic control protocol Objective Weight (Kilograms): 98.800 Accuchecks BSG (last 24hrs): Test 08/14/17 23:31 08/14/17 23:48 08/15/17 04:10 08/15/17 06:18 Random Glucose 479 mg/dl (70-99) Bedside Glucose 437 mg/dl (70-99) 257 mg/dl (70-99) 208 mg/dl (70-99) Laboratory Data (last 24hrs) Test 08/14/17 23:31 08/15/17 05:52 Anion Gap 8.0 mmol/L BUN/Creatinine Ratio 13.4 Blood Urea Nitrogen 23 mg/dl Creatinine 1.75 mg/dl Potassium Level 5.0 mmol/L Sodium Level 133 mmol/L White Blood Count 18.31 K/uL Red Blood Count 3.83 M/uL Hemoglobin 12.9 g/dL Hematocrit 38.0 % Mean Corpuscular Volume 99.2 fL Mean Corpuscular Hemoglobin 33.7 pg Mean Corpuscular Hemoglobin Concent 33.9 g/dl Platelet Count 124 K/uL Mean Platelet Volume 11.2 fL Neutrophils (%) (Auto) 93.5 % Lymphocytes (%) (Auto) 3.9 % Monocytes (%) (Auto) 2.3 % Eosinophils (%) (Auto) 0.0 % Basophils (%) (Auto) 0.0 % Neutrophils # (Auto) 17.12 K/uL Lymphocytes # (Auto) 0.71 K/uL Monocytes # (Auto) 0.42 K/uL Eosinophils # (Auto) 0.00 K/uL Basophils # (Auto) 0.00 K/uL Hemoglobin A1c 9.4 % HbA1c Test 08/15/17 05:52 Hemoglobin A1c 9.4 % (4.5-5.6) H Recent Pertinent Medications Outpatient Anti-diabetic Regimen: * Humulin 70/30 36 units qAM, 42 units qPM * Novolog 5 units with breakfast, 8 units with dinner + sliding scale The patient is currently receiving: * Basal insulin: NPH 35 units x 1 at midnight * Correctional Insulin: Novolog Correction per scale ACHS Goal Range: Low 110 mg/dL - High 150 mg/dL Correction Factor: 25 mg/dL/unit * Prandial insulin: Per carb ratio of 1 unit per 8 grams CHO consumed Risk Factors for Insulin Resistance: * Steroids: rec'd a dose of Solu-medrol at [facility] yesterday * Infection: on Levaquin for pneumonia * Diet: type 2 diabetes Assessment & Plan ASSESSMENT: * 86 y/o male, directly admitted from [facility] last evening, with pneumonia * Outpatient regimen includes a premixed insulin that is difficult to titrate in the hospital so this will be switched to a basal/bolus regimen using Lantus + Novolog * He had significantly elevated BSGs overnight but they have improved as of this AM * For his inpatient regimen * Will base off of insulin calculator estimates using close to a stress level of 2 and his outpatient TDD of 86 units * The NPH dose given last night made up for his misses PM dose of 70/30 so he will still need a dose of basal this AM PLAN FOR INPATIENT GLYCEMIC CONTROL: * Start Lantus 25 units BID - first dose this AM * Novolog ACHS * Goal 110-150 * TIGHTEN CF to 20 * TIGHTEN CR to 6 * Will need to adjust regimen once effects of steroid dose has worn off * Please note that the plan above was derived based on current level of insulin resistance and hospital stress. These recommendations are appropriate for inpatient admission only. Plan of care upon discharge will need to be reassessed to avoid potential outpatient hypo/hyperglycemia. Thank you.
[2017-08-15] MEDS: LORAZEPAM 0.5 MG TAB PO PRN (11:45)
[2017-08-15] MEDS: SIMVASTATIN 20 MG TAB PO SCH (19:45)
[2017-08-15] MEDS: QUETIAPINE FUMARATE 25 MG TAB PO SCH (20:34)
[2017-08-16] MEDS ORDERED: INSULIN ASPART 100 UNITS/ML 3 ML PEN SC ONE (02:00)
[2017-08-16 03:00] VITALS: BP 159/88; PULSE 60; TEMP 36.6; O2SAT 96
[2017-08-16] MEDS: SODIUM CHLORIDE 0.9% 1000ML 1,000 ML IV SCH (05:43)
[2017-08-16 06:10] LABS: BASO % 0.1 %; BASO ABS # 0.01 K/uL (0-0.2); COMPLETE YES; EOS % 0.4 %; IG% 0.5 %; LYMPH % 14.4 %; LYMPH ABS # 1.81 K/uL (1.2-3.4); MEAN CELL VOLUME 99.7 fL (80-100); MEAN CORPUSCULAR HEMOGLOBIN 33.6 pg (25-34); MEAN CORPUSCULAR HGB CONC 33.7 g/dl (32-36); MEAN PLATELET VOLUME 11.2 fL (7.4-10.4); MONO % 5.9 %; NEUT % 78.7 %; PLATELET COUNT 119 K/uL (130-400); RED BLOOD COUNT 3.81 M/uL (4.7-6.1); WHITE BLOOD COUNT 12.59 K/uL (4.8-10.8)
[2017-08-16 06:45] LABS: BUN/CREATININE RATIO 19.9 (10-20); CREATININE 0.99 mg/dl (0.60-1.40); POTASSIUM 3.9 mmol/L (3.5-5.1)
[2017-08-16 08:00] VITALS: BP 143/63; PULSE 60; TEMP 36.4; O2SAT 91
[2017-08-16] MEDS: AMLODIPINE BESYLATE 5 MG TAB PO SCH (08:02)
[2017-08-16] MEDS: ASCORBIC ACID 500 MG TAB PO SCH (08:02)
[2017-08-16] MEDS: CEROVITE ADV FORMULA TAB PO SCH (08:02)
[2017-08-16] MEDS: ASPIRIN 81 MG ECTAB PO SCH (08:02)
[2017-08-16] MEDS: CITALOPRAM 40 MG TAB PO SCH (08:02)
[2017-08-16] MEDS: PANTOprazole SOD 40 MG TAB PO SCH (08:02)
[2017-08-16] MEDS: CLOPIDOGREL BISULFATE 75 MG TAB PO SCH (08:02)
[2017-08-16] MEDS: FoLIC ACID TAB 400 MCG TAB PO SCH (08:03)
[2017-08-16] MEDS: LOSARTAN POTASSIUM 50 MG TAB PO SCH (08:03)
[2017-08-16] MEDS: INSULIN ASPART 100 UNITS/ML 3 ML PEN SC SCH ×4 (08:06→20:25)
[2017-08-16] MEDS: INSULIN GLARGINE SOLOSTAR 100 UNITS/ML 3 ML PEN SC SCH ×2 (08:07→20:25)
[2017-08-16] MEDS: ENOXAPARIN 40 MG/0.4 ML SYR SC SCH (08:08)
--- NOTE | 2017-08-16 10:18 | Pharmacy Progress Note ---
Pharmacy Glycemic Short Note 2 Date of Service Aug 16, 2017. OUTPATIENT ANTIDIABETIC REGIMEN: * Humulin 70/30 36 units qAM, 42 units qPM * Novolog 5 units with breakfast, 8 units with dinner + sliding scale ASSESSMENT: * 86yo T2DM male receiving SQ basal bolus insulin regimen with Lantus + NovoLog while outpatient regimen of pre-mixed insulin is on hold * Pre-mixed insulin is difficult to titrate since it is already in a fixed distribution of basal:prandial insulin. Continuing pre-mixed insulin for admission typically lead to hypoglycemia d/t changing PO status but rapid acting insulin is unable to be held. * Patient has received 96 units of insulin over the past 24hrs * 50 units of basal insulin with Lantus * 46 units of prandial/correctional insulin with NovoLog * AM fasting BSG is slightly below goal range for age/comorbidities at 115 mg/ dl --> will decrease basal insulin dose slightly * Post-prandial BSGs highest before lunch and dinner. Will tighten CF for breakfast and lunch and maintain slightly less aggressive CF/CR for dinner/HS PLAN FOR INPATIENT GLYCEMIC CONTROL: * Basal insulin: decrease dose * Lantus 23 units SQ BID * Bolus insulin * NovoLog per scale ACHS or Q6hrs while NPO * Goal Range: Low 110 mg/dL - High 150 mg/dL breakfast & lunch * Correction Factor: 10 mg/dL/unit * Nutritional / Prandial insulin per carb ratio of 1 unit per 4 grams CHO consumed dinner & HS * Correction Factor: 15 mg/dL/unit * Nutritional / Prandial insulin per carb ratio of 1 unit per 5 grams CHO consumed
[2017-08-16 11:41] VITALS: BP 122/66; PULSE 60; TEMP 36.8; O2SAT 91
[2017-08-16] MEDS: LEVOFLOXACIN / D5W 750 MG in PREMIXED IN D5W 150 ML IV SCH (14:08)
--- NOTE | 2017-08-16 16:01 | Family Medicine Progress Note ---
Progress Note Date of Service Aug 16, 2017. Subjective Pt evaluation today including: conversation w/ patient, conversation w/ family , physical exam, lab review, review of studies, conversation w/ loss prevention consultant, review of inpatient medication list Pain: none PO Intake: good Voiding: no voiding problems patient is feeling better today denies any shortness of breath says he is supposed to use oxygen at home for low oxygen at nighttime but has not been using it Still has a productive cough Is eating and drinking Denies any fevers overnight Constitutional: No fever, No chills, No sweats, No fatigue Respiratory: + cough, + sputum, No shortness of breath, No dyspnea on exertion, No hemoptysis Cardiovascular: No chest pain, No edema, No palpitations Abdomen: No pain, No nausea, No vomiting Skin: No rash, No itch Medications Current Inpatient Medications Medications (Trade) Dose Ordered Sig/Jorge Route Start Time Stop Time Status Last Admin Dose Admin Enoxaparin Sodium (Lovenox Inj) 40 mg Q24H SC 08/15/17 09:00 09/14/17 08:59 08/16/17 08:08 40 MG Sodium Chloride 1,000 ml @ 75 mls/hr [id number] IV 08/14/17 23:30 09/13/17 23:29 08/16/17 05:43 75 MLS/HR Acetaminophen (Tylenol Tab) 650 mg Q4H PRN PO 08/14/17 23:15 09/13/17 23:14 08/15/17 15:45 650 MG Al Hydrox/Mg Hydrox/Simethicone (Maalox Max Susp) 15 ml Q4H PRN PO 08/14/17 23:15 09/13/17 23:14 Magnesium Hydroxide (Milk Of Magnesia Susp) 30 ml Q12H PRN PO 08/14/17 23:15 09/13/17 23:14 Ondansetron HCl (Zofran Inj) 4 mg Q6H PRN IV 08/14/17 23:15 09/13/17 23:14 Nitroglycerin (Nitrostat Tab) 0.4 mg UD PRN SL 08/14/17 23:15 09/13/17 23:14 Polyethylene (Miralax Powder Packet) 17 gm DAILY PRN PO 08/14/17 23:15 09/13/17 23:14 Miscellaneous Information (Consult Glycemic Management Pharmacy) 1 ea UD PRN N/A 08/14/17 23:30 09/13/17 23:29 Glucose (Glucose 40% Gel) 15-30 GRAMS 15 GRAMS... UD PRN PO 08/14/17 23:45 09/13/17 23:44 Glucose (Glucose Chew Tab) 4-8 Tablets 4 Tabl... UD PRN PO 08/14/17 23:45 09/13/17 23:44 Dextrose (Dextrose 50% 50ML Syringe) 25-50ML OF 50% DW IV FOR... UD PRN IV 08/14/17 23:45 09/13/17 23:44 Glucagon (Glucagon Inj) 1 mg UD PRN SQ 08/14/17 23:45 09/13/17 23:44 Levofloxacin (Consult) 1 ea UD PRN N/A 08/15/17 00:45 09/14/17 00:44 Amlodipine Besylate (Norvasc Tab) 10 mg DAILY PO 08/15/17 09:00 09/14/17 08:59 08/16/17 08:02 10 MG Ascorbic Acid (Vitamin C Tab) 500 mg QAM PO 08/15/17 09:00 09/14/17 08:59 08/16/17 08:02 500 MG Aspirin (Ecotrin Tab) 81 mg QAM PO 08/15/17 09:00 09/14/17 08:59 08/16/17 08:02 81 MG Citalopram Hydrobromide (celeXA TAB) 40 mg QAM PO 08/15/17 09:00 09/14/17 08:59 08/16/17 08:02 40 MG Clopidogrel Bisulfate (plAVix TAB) 75 mg DAILY PO 08/15/17 09:00 09/14/17 08:59 08/16/17 08:02 75 MG Folic Acid (Folvite Tab) 400 mcg DAILY PO 08/15/17 09:00 09/14/17 08:59 08/16/17 08:03 400 MCG Losartan Potassium (coZAAR TAB) 50 mg DAILY PO 08/15/17 09:00 09/14/17 08:59 08/16/17 08:03 50 MG Multivitamins/ Minerals (Multivitamin W/ Minerals Tab) 1 tab QAM PO 08/15/17 09:00 09/14/17 08:59 08/16/17 08:02 1 TAB Ondansetron HCl (Zofran Tab) 4 mg Q8 PRN PO 08/15/17 02:15 09/14/17 02:14 Pantoprazole Sodium (Protonix Tab) 40 mg DAILY PO 08/15/17 09:00 09/14/17 08:59 08/16/17 08:02 40 MG Quetiapine Fumarate (seroQUEL TAB) 50 mg HS PO 08/15/17 21:00 09/14/17 20:59 08/15/17 20:34 50 MG Simvastatin (Zocor Tab) 20 mg QPM PO 08/15/17 21:00 09/14/17 20:59 08/15/17 19:45 20 MG Albuterol/ Ipratropium (Duoneb) 3 ml Q4R PRN INH 08/15/17 06:15 09/14/17 06:14 08/15/17 20:06 3 ML Lorazepam (Ativan Tab) 0.5 mg TID PRN PO 08/15/17 11:30 09/14/17 11:29 08/15/17 11:45 0.5 MG Insulin Glargine (Lantus Solostar Pen) 23 units BID SC 08/16/17 21:00 09/15/17 20:59 Insulin Aspart (novoLOG ASPART) SLIDING SCALE BID@0700,1100 SC 08/17/17 07:00 09/16/17 06:59 Insulin Aspart (novoLOG ASPART) SLIDING SCALE BID@1615,2100 SC 08/16/17 16:15 09/15/17 16:14 Levofloxacin 750 mg/Prmx 150 ml @ 100 mls/hr Q24H IV 08/16/17 14:00 08/23/17 13:59 08/16/17 14:08 100 MLS/HR Objective Vital Signs Date Time Temp Pulse Resp B/P (MAP) Pulse Ox O2 Delivery O2 Flow Rate FiO2 08/16/17 12:00 Nasal Cannula 2.0 08/16/17 11:41 36.8 60 18 122/66 (84) 91 Nasal Cannula 2.0 08/16/17 08:00 Nasal Cannula 2.0 08/16/17 08:00 36.4 60 20 143/63 (89) 91 Nasal Cannula 2.0 08/16/17 04:00 Nasal Cannula 4.0 08/16/17 03:00 36.6 60 18 159/88 (111) 96 Nasal Cannula 4.0 08/15/17 23:59 Nasal Cannula 4.0 08/15/17 22:44 36.3 55 18 125/62 (83) 91 Nasal Cannula 4.0 08/15/17 20:12 36.6 64 18 167/77 (107) 97 Nasal Cannula 4.0 08/15/17 20:09 60 16 96 Nasal Cannula 4.0 08/15/17 20:00 Nasal Cannula 4.0 08/15/17 16:00 94 Nasal Cannula 5.0 Physical Exam General Appearance: WD/WN, no apparent distress ENT: hearing grossly normal, pharynx normal, + pertinent finding (poor denitition) Neck: supple, thyroid normal, no JVD Respiratory/Chest: lungs clear, normal breath sounds, no accessory muscle use, + decreased breath sounds (at bases bilaterally) Cardiovascular: regular rate, rhythm, no edema, no murmur Abdomen: normal bowel sounds, non tender, soft, + distended Extremities: non-tender, no pedal edema, no calf tenderness, + pertinent finding (finger clubbing present) Neurologic/Psychiatric: no motor/sensory deficits, normal mood/affect, oriented x 3 Laboratory Results Results Past 24 Hours Test 08/15/17 16:08 08/15/17 20:28 08/16/17 01:25 08/16/17 05:34 Range/Units Bedside Glucose 249 125 83 70-99 mg/dl White Blood Count 12.59 4.8-10.8 K/uL Red Blood Count 3.81 4.7-6.1 M/uL Hemoglobin 12.8 14.0-18.0 g/dL Hematocrit 38.0 42-52 % Mean Corpuscular Volume 99.7 80-100 fL Mean Corpuscular Hemoglobin 33.6 25-34 pg Mean Corpuscular Hemoglobin Concent 33.7 32-36 g/dl Platelet Count 119 130-400 K/uL Mean Platelet Volume 11.2 7.4-10.4 fL Neutrophils (%) (Auto) 78.7 % Lymphocytes (%) (Auto) 14.4 % Monocytes (%) (Auto) 5.9 % Eosinophils (%) (Auto) 0.4 % Basophils (%) (Auto) 0.1 % Neutrophils # (Auto) 9.92 1.4-6.5 K/uL Lymphocytes # (Auto) 1.81 1.2-3.4 K/uL Monocytes # (Auto) 0.74 0.11-0.59 K/uL Eosinophils # (Auto) 0.05 0-0.5 K/uL Basophils # (Auto) 0.01 0-0.2 K/uL RDW Standard Deviation 47.9 36.4-46.3 fL RDW Coefficient of Variation 13.4 11.5-14.5 % Immature Granulocyte % (Auto) 0.5 % Immature Granulocyte # (Auto) 0.06 0.00-0.02 K/uL Sodium Level 142 136-145 mmol/L Potassium Level 3.9 3.5-5.1 mmol/L Chloride Level 110 98-107 mmol/L Carbon Dioxide Level 28 21-32 mmol/L Anion Gap 5.0 3-11 mmol/L Blood Urea Nitrogen 20 7-18 mg/dl Creatinine 0.99 0.60-1.40 mg/dl Est Creatinine Clear Calc Drug Dose 64.9 ml/min Estimated GFR () 79.6 Estimated GFR (Non- 68.7 BUN/Creatinine Ratio 19.9 10-20 Random Glucose 87 70-99 mg/dl Calcium Level 8.0 8.5-10.1 mg/dl Test 08/16/17 06:38 08/16/17 11:20 Range/Units Bedside Glucose 115 243 70-99 mg/dl Assessment and Plan This is an 86 y/o M who presents as a transfer from [place] for sepsis 2/2 pneumonia as well as hyperglycemia Sepsis 2/2 Community acq. Pneumonia - CXR showed R basilar opacity and R pleural effusion - lactate decreased from 4.3 to 2.2 - continue with IV levaquin ---> will transition to PO tomorrow - Stop IVF as patient drinking PO - Ordered incentive spirometer - O2 as needed --> may need to do 2 step on day of discharge if patient continues to have oxygen requirements, he is supposed to use oxygen at home secondary to hypoxia, smoked cigars for 30 years - Ordered sputum cultures - Blood cultures negative to date ZOE on CKD - GFR 34.5 - creatine 0.99 - IVF stopped - follow BMP HTN - continue losartan, norvasc and HCTZ - continue to monitor Depression - continue seroquel and celexa HLD - continue statin Hyperglycemia/DMII - insulin lantus 23 units bid with ISS - HbA1c 9.4 - glycemic consult Sick sinus s/p dual chamber pacemaker- noted CAD - aspirin, plavix and Simvastatin Dvt proph - Lovenox Anxiety - ativan tid prn Dispo - PT/OT ordered Code: - DNR (per ) Resident Physician Supervision Note: I was present with PGY2 Dr. Amish Reeves during the history and exam. I discussed the case with the resident and agree with the findings and plan as documented in the note. Any exceptions or clarifications are listed here: none. Pt feeling better. Making jokes during bedside rounds. No further delirium - /son confirm he is back to baseline. Denies dyspnea. Confirms he has been prescribed night-time O2 for ?BRYCE VSS no fever gen - nad neck - no JVD sitting at 90 degrees heart - RRR lungs - mild bibasilar rales, R>L; no wheeze abd - soft ext - no edema; clubbing of fingernails A/P: sepsis 2nd to pneumonia - resolving nicely. ZOE - resolved. agree w/ discontinue IVF. o2 requirement - with his fingernail clubbing I wonder if he will need home O2 - will address at d/c. Documented By: Mike Plasencia MD Continued [facility] stay due to: multiple IV medications needed Discharge planning: uncertain
[2017-08-16] MEDS: LORAZEPAM 0.5 MG TAB PO PRN (16:38)
[2017-08-16] MEDS ORDERED: LEVOFLOXACIN / D5W 750 MG in PREMIXED IN D5W 150 ML IV SCH (18:00)
[2017-08-16 19:02] VITALS: BP 159/77; PULSE 61; TEMP 37.2; O2SAT 92
[2017-08-16] MEDS: ACETAMINOPHEN 325 MG TAB PO PRN (19:28)
[2017-08-16] MEDS: SIMVASTATIN 20 MG TAB PO SCH (19:29)
[2017-08-16] MEDS: QUETIAPINE FUMARATE 25 MG TAB PO SCH (20:26)
[2017-08-16 20:38] VITALS: TEMP 36.6
[2017-08-16 23:17] VITALS: BP 133/72; PULSE 66; TEMP 36.9; O2SAT 92
[2017-08-17 04:00] VITALS: BP 131/68; PULSE 61; TEMP 36.8; O2SAT 94
[2017-08-17 06:53] LABS: HEMATOCRIT 39.4 % (42-52); MEAN CELL VOLUME 99.2 fL (80-100); MEAN CORPUSCULAR HEMOGLOBIN 33.2 pg (25-34); MEAN CORPUSCULAR HGB CONC 33.5 g/dl (32-36); MEAN PLATELET VOLUME 11.1 fL (7.4-10.4); PLATELET COUNT 119 K/uL (130-400); RED BLOOD COUNT 3.97 M/uL (4.7-6.1); WHITE BLOOD COUNT 7.79 K/uL (4.8-10.8)
[2017-08-17 07:30] LABS: BUN/CREATININE RATIO 15.2 (10-20); CALCIUM 8.5 mg/dl (8.5-10.1); CREATININE 1.03 mg/dl (0.60-1.40); POTASSIUM 3.7 mmol/L (3.5-5.1)
[2017-08-17 07:39] VITALS: BP 167/75; PULSE 81; TEMP 36.7; O2SAT 94
[2017-08-17] MEDS: AMLODIPINE BESYLATE 5 MG TAB PO SCH (07:43)
[2017-08-17] MEDS: CITALOPRAM 40 MG TAB PO SCH (07:43)
[2017-08-17] MEDS: ASPIRIN 81 MG ECTAB PO SCH (07:43)
[2017-08-17] MEDS: FoLIC ACID TAB 400 MCG TAB PO SCH (07:43)
[2017-08-17] MEDS: CLOPIDOGREL BISULFATE 75 MG TAB PO SCH (07:43)
[2017-08-17] MEDS: ASCORBIC ACID 500 MG TAB PO SCH (07:44)
[2017-08-17] MEDS: PANTOprazole SOD 40 MG TAB PO SCH (07:44)
[2017-08-17] MEDS: CEROVITE ADV FORMULA TAB PO SCH (07:44)
[2017-08-17] MEDS: LOSARTAN POTASSIUM 50 MG TAB PO SCH (07:44)
[2017-08-17] MEDS: ENOXAPARIN 40 MG/0.4 ML SYR SC SCH (07:44)
[2017-08-17] MEDS: INSULIN ASPART 100 UNITS/ML 3 ML PEN SC SCH ×2 (07:47→11:39)
[2017-08-17] MEDS: INSULIN GLARGINE SOLOSTAR 100 UNITS/ML 3 ML PEN SC SCH (07:48)
[2017-08-17] MEDS ORDERED: BISACODYL 10 MG SUPP PR STA (10:34)
[2017-08-17 11:21] VITALS: BP 156/81; PULSE 60; TEMP 36.6; O2SAT 93
[2017-08-17 13:38] VITALS: BP 163/73; PULSE 62; O2SAT 92
[2017-08-17] MEDS: LEVOFLOXACIN / D5W 750 MG in PREMIXED IN D5W 150 ML IV SCH (13:51)
[2017-08-17] MEDS ORDERED: CZR25 PO (14:37)
[2017-08-17] MEDS ORDERED: LEVO-18 PO (14:37)
[2017-08-17] MEDS ORDERED: INSU1INJ SC ×2 (14:46)
--- NOTE | 2017-08-17 14:49 | Discharge Instructions ---
Discharge Instructions Date of Service Aug 17, 2017. Admission Reason for Admission: Pneumonia, Sepsis Discharge Discharge Diagnosis / Problem: Pneumonia Discharge Goals Goal(s): Improve disease control, Improve nutritional status, Prevent Disease Progression Activity Recommendations Activity Limitations: per Instructions/Follow-up section . Instructions / Follow-Up Instructions / Follow-Up Instructions per Dr. Reeves 1) Pneumonia - continue with the antibiotics for 1 week to finish a ten day course. You will need to use 2L of oxygen when ambulating but you do not need to use it at rest 2) Hypertension - increased your losartan to 75mg daily, please record your blood pressure and bring it to your PCP 3) Diabetes- your HbA1c was 9.4. This is high and means your diabetes is not well controlled. We will give your a prescription to increase your insulin dose. Please follow up with your family doctor for the management of your diabetes If you experience any worsening shortness of breath, cough or fever >1004. then please come back to the emergency department Please follow up with your family doctor in 1 week Current Hospital Diet Patient's current hospital diet: Diabetes Type 2 Diet Discharge Diet Recommended Diet: Diabetes Type 2 Diet Pending Studies Studies pending at discharge: yes List of pending studies: Blood cultures Laboratory Results Hemoglobin A1c Test 08/15/17 05:52 Range/Units Estimated Average Glucose 223 mg/dl Hemoglobin A1c 9.4 H 4.5-5.6 % Medical Emergencies . Who to Call and When: Medical Emergencies: If at any time you feel your situation is an emergency, please call 911 immediately. . Non-Emergent Contact Non-Emergency issues call your: Primary Care Provider . . "Provider Documentation" section prepared by Amish Reeves. . VTE Core Measure Inpt VTE Proph given/why not?: Enoxaparin (Lovenox)SQ
[2017-08-17 14:58] VITALS: BP 163/73; PULSE 62; TEMP 36.6; O2SAT 92
--- NOTE | 2017-08-17 15:17 | Discharge Summary ---
Discharge Summary Date of Service Aug 17, 2017. Discharge Summary Admission Date: Aug 14, 2017 at 21:57 Discharge Date: Aug 17, 2017 Discharge Disposition: Home with services Principal Diagnosis: Pneumonia Medication Reconciliation New Medications: Levofloxacin (Levaquin) 750 Mg Tab 1 TAB PO DAILY for 7 Days, #7 TAB Losartan Potassium (Losartan Potassium) 25 Mg Tab 3 TABS PO DAILY for 30 Days, #90 TAB Changed Medications: Insulin Isophan/Regular (Humulin 70/30) Susp 40 UNITS SC AT BREAKFAST for 22 Days, #1 VIAL (Changed from: 36 UNITS) Insulin Isophan/Regular (Humulin 70/30) Susp 48 UNITS SC [facility] DINNER for 22 Days, #1 VIAL (Changed from: 42 UNITS) Continued Medications: Amlodipine (Norvasc) 10 Mg Tab 10 MG PO DAILY, TAB Ascorbic Acid (Vitamin C) 500 Mg Tab 1 TAB PO QAM Aspirin (Aspirin Chewable) 81 Mg Chew 81 MG PO QAM Citalopram Hydrobromide (Celexa) 40 Mg Tab 40 MG PO QAM, TAB Clopidogrel (Plavix) 75 Mg Tab 75 MG PO DAILY, TAB Cyanocobalamin (Vitamin B12) 1,000 Mcg Tab 1 TAB PO QAM Folic Acid (Folvite) 1 Mg Tab 400 MCG PO DAILY for 90 Days, TAB 1 Refill Insulin Aspart (Novolog Flexpen) 100 Units/Ml Inj PT USES 5 MG AT BREAKFAST AND 8 UNITS AT SUPPER AND SLIDING SCALE ACCORDINGLY Multiple Vitamins W/ Minerals (Centrum Silver Adult 50+) 1 Tab Tab 1 TAB PO QAM Ondansetron Hcl (Zofran) 4 Mg Tab 4 MG PO Q8 PRN for Nausea, TAB Pantoprazole (Protonix) 40 Mg Tab 40 MG PO DAILY, #30 TAB Quetiapine Fumarate (Seroquel) 50 Mg Tab 50 MG PO HS, TAB Simvastatin (Zocor) 20 Mg Tab 20 MG PO QPM, TAB Discontinued Medications: Losartan Potassium (Cozaar) 50 Mg Tab 50 MG PO DAILY, TAB Discharge Exam Patient feeling well and without any shortness of breath with rest or exertion Denies any fever or chills overnight Continues to have an intermittent dry cough Review of Systems: Constitutional: No fever, No chills, No sweats Respiratory: + cough, No sputum, No wheezing, No shortness of breath, No dyspnea on exertion Cardiovascular: No chest pain, No edema, No palpitations Abdomen: No pain, No nausea, No vomiting, No diarrhea Genitourinary - Male: No dysuria, No urinary frequency Neurologic: + memory loss, No weakness Hematologic / Lymphatic: No abnormal bleeding/bruising Physical Exam: General Appearance: WD/WN, no apparent distress Eyes: normal inspection, PERRL ENT: pharynx normal, + pertinent finding (poor dentition) Neck: supple, no JVD, no carotid bruits, trachea midline Respiratory/Chest: no respiratory distress, no accessory muscle use, + crackles (crackles at the left lower base) Cardiovascular: regular rate, rhythm, no edema, no murmur, normal peripheral pulses Abdomen / GI: normal bowel sounds, non tender, soft Neurologic/Psychiatric: alert, normal mood/affect, oriented x 3 Hospital Course This is an 86 y/o M who presents as a transfer from [place] for sepsis 2/2 pneumonia as well as hyperglycemia Sepsis 2/2 Community acq. Pneumonia - CXR showed R basilar opacity and R pleural effusion - Received IV levaquin in hospital and transitioned to PO levaquin on discharge and given script to finish 10 day course - Ordered incentive spirometer in hospital - Patient had increased oxygen requirements in the hospital. 2 step showed need for oxygen with ambulation but not at rest. This was organized with case management - Ordered sputum cultures - Blood cultures at discharge. will need to follow final results with PCP ZOE on CKD - GFR 34.5 - creatine 1.03 at discharge - received IVF in the hospital HTN - continue norvasc and HCTZ - losartan increased to 75mg daily from 50mg daily on discharge - Patient told to record BP and follow up with PCP - continue to monitor Depression - continue seroquel and celexa HLD - continue statin Hyperglycemia/DMII - insulin increased to 40 at breakfast and 48 at dinner - HbA1c 9.4 - follow up with PCP - night before discharge patient appeared to be confused and had a 1:1 - notes that patient has had some worsening short term memory loss over 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 Discharge Instructions Please refer to the electronic Patient Visit Report (Discharge Instructions) for additional information. Additional Copies To Latoya Allen M.D.
[2017-08-17] MEDS ORDERED: INSULIN GLARGINE SOLOSTAR 100 UNITS/ML 3 ML PEN SC SCH (21:00)
[2017-08-18] MEDS ORDERED: LEVOFLOXACIN 750 MG TAB PO SCH (11:00)
== END 2017-08-17 15:35 | disposition home or self-care (01) | DRG 871 ==
LOC: C.2T 21:57
PROVIDERS: ADMIT Family Medicine; ATTEND Internal Medicine
DX: A41.9 Sepsis, unspecified organism (principal); J18.9 Pneumonia, unspecified organism; N17.9 Acute kidney failure, unspecified; Z66 Do not resuscitate; N18.9 Chronic kidney disease, unspecified; I12.9 Hypertensive chronic kidney disease with stage 1 through stage 4 chronic kidney disease, or unspecified chronic kidney disease; F41.9 Anxiety disorder, unspecified; I25.10 Atherosclerotic heart disease of native coronary artery without angina pectoris; E11.65 Type 2 diabetes mellitus with hyperglycemia; F17.200 Nicotine dependence, unspecified, uncomplicated; Z79.82 Long term (current) use of aspirin; Z79.4 Long term (current) use of insulin